=== PATIENT | male | born 1955 | race Caucasian/White ===

== ENCOUNTER 2017-09-12 10:51 | Emergency (ER) | payer MEDICAID, MEDICARE ==
[~2017-09-12] VITALS: Ht 177.8 cm; Wt 83.4 kg
[2017-09-12] MEDS ORDERED: AMLO5TAB4 PO (11:14)
[2017-09-12] MEDS ORDERED: ATOR10TA9 PO (11:31)
[2017-09-12] MEDS ORDERED: GABA300C10 PO (11:31)
[2017-09-12] MEDS ORDERED: METO50TA82 PO (11:31)
[2017-09-12] MEDS ORDERED: ISOS10TA6 PO (11:31)
[2017-09-12] MEDS ORDERED: CLOP75TA52 PO (11:31)
[2017-09-12] MEDS ORDERED: METF500T4 PO (11:31)
[2017-09-12] MEDS ORDERED: PANT20TA2 PO (11:31)
[2017-09-12 11:54] VITALS: BP 159/92
[2017-09-12] MEDS ORDERED: DEXAMETHASONE 4 MG/ML, 5ML ONE (11:59)
[2017-09-12] MEDS ORDERED: DEXAMETHASONE 4 MG/ML, 1ML IM ONE (12:00)
[2017-09-12] MEDS ORDERED: ONDANSETRON ODT 8 MG PO ONE (12:30)
[2017-09-12] MEDS ORDERED: FAMOTIDINE 20 MG TABLET PO ONE (12:30)
[2017-09-12] MEDS ORDERED: ONDANSETRON ODT 8 MG ONE (12:58)
[2017-09-12] MEDS ORDERED: FAMOTIDINE 20 MG TABLET ONE (12:58)
== END 2017-09-12 13:03 ==
LOC: ED 11:41
DX: L50.9 Urticaria, unspecified (principal); E11.9 Type 2 diabetes mellitus without complications; I11.9 Hypertensive heart disease without heart failure; J44.9 Chronic obstructive pulmonary disease, unspecified; I25.10 Atherosclerotic heart disease of native coronary artery without angina pectoris; F17.210 Nicotine dependence, cigarettes, uncomplicated
CPT/HCPCS: 96372; 99283; J1100; Q0162

== ENCOUNTER → 2017-12-12 | Outpatient (CLI) | payer MEDICARE, MEDICAID ==
[~2017-12-12] MED LIST: AMLO5TAB4 PO; ATOR10TA9 PO; CLOP75TA52 PO; GABA300C10 PO; ISOS10TA6 PO; METF500T4 PO; METO50TA82 PO; PANT20TA2 PO; REGADENOSON 0.4 MG/5 ML SYRINGE ONE
== END ==
LOC: CFH 12:08
PROVIDERS: ATTEND Nurse Practitioner Family
DX: I25.10 Atherosclerotic heart disease of native coronary artery without angina pectoris (principal); I99.8 Other disorder of circulatory system
CPT/HCPCS: 78452; 93017; 93306; A9502; J2785